=== PATIENT | female | born 1980 | race African-American/Black ===

== ENCOUNTER 2024-05-29 11:26 | Emergency (ER) | payer OTHER, SELFPAY ==
[2024-05-29 11:27] VITALS: BP 137/97; PULSE 98; RESP 18; TEMP 36.3; O2SAT 100; BMI 24.1
--- NOTE | 2024-05-29 11:41 | CT_ITS ---
STUDY: CT SOFT TISSUE NECK WITH CONTRAST REASON FOR EXAM: Female, 43 years old. right anterolateral neck pain, swelling RADIATION DOSAGE (If Supplied By Facility): CTDIvol = ( 11.46 ) mGy, DLP = ( 294.90 ) mGycm TECHNIQUE: The patient was scanned in a multi-detector CT scanner. High resolution transaxial imaging was performed following intravenous administration of IV 75mL Isovue-370. Sagittal and coronal images were reconstructed. Individualized dose optimization techniques were used for this CT. COMPARISON: None. FINDINGS: Normal bilateral parotid glands. Normal bilateral biometrics experimentalist spaces. Normal bilateral parapharyngeal spaces. Normal bilateral carotid spaces. Normal bilateral sublingual and submandibular glands and spaces. Normal visualized nasopharynx. Normal retropharyngeal space. Normal perivertebral space. Normal visualized bilateral faucial tonsils. The visualized tongue, tongue base and oropharynx are normal. The visualized cervical lymph nodes (levels I-) are within normal size limits, and maintain normal morphology. There is no demonstrated solid or cystic mass lesion. There is no abnormal contrast enhancement. Normal epiglottis, bilateral vallecula and hypopharynx. The pre-epiglottic and paraglottic adipose spaces are normal. Normal visualized bilateral piriform sinuses, aryepiglottic folds, vocal cords, and arytenoid-cricoid articulations. Normal subglottic trachea. Multiple nodules decreased attenuation and/or enhancement within the thyroid gland suggestive of a multinodular thyroid gland with a possible 3 cm dominant nodule in the left lobe. Follow-up thyroid ultrasound may be useful. Normal visualized pulmonary apices. Normal visualized paranasal sinuses. Normal visualized cervical spine. CT/Soft Tissue Neck WITH Contrast IMPRESSION: 1. No obvious mucosal mass or lymphadenopathy. 2. Possible multinodular goiter and follow-up thyroid ultrasound may be useful. Electronically Signed: Mohamud Laguna MD at 12:57 EDT ,
--- NOTE | 2024-05-29 11:46 | EX.ED.DYSGE1 ---
HPI History of Present Illness Chief Complaint: Wound Detail of Chief Complaint: Neck pain and swelling Informant: patient Narrative Narrative: Patient presents with right lower neck pain and swelling that is been progressive over the past 24 hours. She denies URI symptoms with congestion or sore throat. She has not had any neck injury. She went to urgent care this morning and they were concerned about possible thyroid infection and sent her to the emergency room. Patient has no known history of thyroid problems. PFSH PFSH Medical History no medical history no medical history Home Medications ?Medication ?Instructions ?Recorded ?Last Taken ?Type hydrocodone-acetaminophen 5-325mg 1 tab PO Q6H PRN PRN Pain 3 days 05/29/24 Unknown Rx 5mg-325mg #10 TABLETS naproxen 500 mg tablet (Naprosyn) 500 mg PO BID PRN pain #20 tabs 05/29/24 Unknown Rx Allergy/AdvReac Type Severity Reaction Status Date / Time No Known Allergies Allergy Verified 05/29/24 11:27 Social History Smoking Status: Unknown if ever smoked ROS ROS ED Constitutional Constitutional ED: Denies chills or fever(s) Eyes Eyes: Denies discharge from eye(s) ENT ENT ED: Reports other Details: Anterior neck pain ; Denies discharge from eye(s), rhinorrhea or sore throat Cardiovascular Cardiovascular: Denies chest pain Respiratory/Chest Respiratory/Chest: Denies cough or dyspnea Gastrointestinal Gastrointestinal: Denies abdominal pain, nausea or vomiting Musculoskeletal Musculoskeletal: Denies back pain or extremity pain Integumentary Denies Abrasions or rash Neurologic Neurologic: Denies headache(s) or weakness Psychiatric Psychiatric: Denies anxiety or depression Allergic/Immunologic Allergic/Immunologic ED: Denies lip swelling or urticaria EXAM Physical Exam Const Vital Signs: 05/29/24 11:27 05/29/24 13:25 Temperature 97.3 F L Temperature Source Temporal Pulse Rate 98 81 Respiratory Rate 18 17 Blood Pressure 137/97 H 136/96 H Blood Pressure Mean 110 109 Pulse Ox 100 99 Oxygen Delivery Method Room Air Room Air Positive well nourished and well developed General Appearance ED: well developed HEENT HEENT Narrative: Tender edematous area to the right anterior lateral lower neck. No overlying skin change. Patient speaks with a strong voice and tolerates secretions well. Eyes EOMs intact bilaterally Chest Wall inspection of chest normal and palpation of chest normal Resp normal respiratory effort and clear to auscultation bilaterally Cardio regular rate and regular rhythm GI non-tender Palpation: soft Extremity normal to inspection Neuro oriented x3 and no sensory deficits noted Motor Exam: strength 5/5 throughout Psych mental status grossly normal Skin no rashes or lesions noted MDM MDM MDM Narrative Medical decision making narrative: IV line established. Labwork obtained to evaluate for leukocytosis, anemia, and electrolyte derangement. CT of the neck with IV contrast will be obtained to evaluate for mass, hematoma. History & Record Review Discussion w/independent historian: Patient Lab Data Attestation: I reviewed the patient's lab results. Labs: Laboratory Results - last 24 hr 05/29/24 11:52 WBC 7.3 RBC 4.23 Hgb 9.3 L Hct 31.4 L MCV 74.2 L MCH 22.0 L MCHC 29.6 L RDW Std Deviation 47.8 H RDW Coeff of [place] 17.8 H Plt Count 346 MPV 10.1 Immature Gran % (Auto) 0.700 Neut % (Auto) 58.9 Lymph % (Auto) 32.6 [place] % (Auto) 6.0 Eos % (Auto) 1.0 Baso % (Auto) 0.8 Absolute Neuts (auto) 4.3 Absolute Lymphs (auto) 2.37 Nucleated RBC % 0 Sodium 138 Potassium 3.6 Chloride 107 Carbon Dioxide 26.0 Anion Gap 5 BUN 6 L Creatinine 0.70 Estim Creat Clear Calc 81.11 Est GFR (MDRD) Af Amer 117 Est GFR (MDRD) Non-Af 97 BUN/Creatinine Ratio 8.6 L Glucose 86 Calcium 9.0 TSH 1.01 Free T4 0.95 Serum , Qual NEGATIVE Radiography Diagnostic Testing: Clinical Impression(s) from Imaging Studies Soft Tissue Neck CT 05/29/24 11:41 IMPRESSION: 1. No obvious mucosal mass or lymphadenopathy. 2. Possible multinodular goiter and follow-up thyroid ultrasound may be useful. Electronically Signed: Mohamud Laguna MD at 12:57 EDT , Thyroid Ultrasound 05/29/24 13:40 IMPRESSION: Multinodular thyroid gland with a dominant nodule in the left lobe for which ultrasound-guided biopsy is recommended. Electronically Signed: Mohamud Laguna MD at 15:33 EDT , Treatment and Re-Evaluation :: CBC and chemistry studies significant only for anemia with a hemoglobin 9.3. I do not have any prior values available for comparison. TSH is normal at 1.01. Free T40.95. Total T3 is still pending. test negative. CT scan of the neck with IV contrast is obtained that reveals no obvious mucosal mass or lymphadenopathy. Possible multinodular goiter is noted with follow-up thyroid ultrasound recommended. Patient was sent for ultrasound of her thyroid. This reveals multinodular thyroid with a dominant nodule in the left lobe for which ultrasound-guided biopsy is recommended. Test results were discussed with the patient. She will be referred to surgery for follow-up. She will also be referred to a primary care physician to establish care. I will write her a short course of naproxen as well as a few [place] for breakthrough pain. Return instructions were provided. Patient comfortable with the plan. Discharge Plan Triage Chief Complaint: Wound ED Provider: Mayela Fenton Dx/Rx/DC Orders Clinical Impression: Acute neck pain, Multinodular thyroid Instructions: Treating Thyroid Problems Prescriptions: New naproxen [Naprosyn] 500 mg tablet 500 mg PO BID PRN (Reason: pain) Qty: 20 0RF hydrocodone-acetaminophen 5-325 mg tablet 1 tab PO Q6H PRN PRN (Reason: Pain) 3 Days Qty: 10 0RF Primary Care Provider: Care Physician,No Primary Referrals: Jairon Avina MD [Med Staff - Active Staff] - 1-2 Weeks Milena Milner MD [Med Staff - Courtesy Staff] - Rian Gaytan DO [Med Staff - Certified Marine Mechanic] - As Needed Print Language: Frisian Disposition Disposition: Home, Self Care
[2024-05-29 12:02] LABS: Absolute Lymphocyte Count 2.37 X10^3/uL (0.83-4.51); Absolute Neutrophil Count 4.3 X10^3/uL (2.0-7.7); Basophil# 0.06 X10^3/uL; Basophil% 0.8 % (0-1); Eosinophil# 0.07 X10^3/uL; Hematocrit 31.4 % (37-47); Hemoglobin 9.3 g/dL (12.0-15.0); Lymphocyte # 2.37 X10^3/ul (0.83-4.51); Lymphocyte % 32.6 % (19-41); Mean Corp Hgb Conc 29.6 g/dL (32-36); Mean Corpuscular Volume 74.2 fL (81-99); Mean Platelet Vol. 10.1 fl (6.2-12.0); Monocyte# 0.44 X10^3/uL; NRBC Flagged by Analyzer 0 % (0-5); Neutrophil # 4.29 X10^3/uL (2.7-7.7); Neutrophil % 58.9 % (47-70); Platelet Count 346 K/mm3 (150-450); RBC Distribution Width CV 17.8 % (11.6-14.6); RBC Distribution Width SD 47.8 fl (35.1-43.9); Red Blood Count 4.23 M/mm3 (4.2-5.4); White Blood Count 7.3 K/mm3 (4.4-11.0)
[2024-05-29 12:17] LABS: Internal QC Validated? YES +Cl - CLEAR BKGD; Pregnancy, Serum, hCG Quali. NEGATIVE Negative
[2024-05-29 12:26] LABS: Anion Gap 5 (5-15); BUN 6 mg/dL (7-18); BUN/Creat Ratio 8.6 RATIO (10-20); Chloride 107 mmol/L (98-107); EST Glomerular Filtration Rate 97 mL/min (>60); Est Glom Filt Rate - Afr Amer 117 mL/min (>60); Estimated Creatinine Clearance 81.11 ml/min; Glucose 86 mg/dL (74-106); Potassium 3.6 mmol/L (3.5-5.1); Sodium Level 138 mmol/L (136-145); T4 Free Direct 0.95 ng/dL (0.76-1.46); Thyroid Stim Hormone (TSH) 1.01 uIU/mL (0.358-3.74)
[2024-05-29] MEDS: Acetaminophen 500 MG Tablet 1000 MG PO (12:53)
[2024-05-29 13:25] VITALS: BP 136/96; PULSE 81; RESP 17; O2SAT 99
--- NOTE | 2024-05-29 13:40 | US_ITS ---
STUDY: THYROID ULTRASOUND REASON FOR EXAM: Female, 43 years old. pain, swelling x 24 hours TECHNIQUE: Ultrasound evaluation of the thyroid was performed with real-time and static tamez-scale imaging. COMPARISON: CT earlier today FINDINGS: RIGHT LOBE: The right lobe of the thyroid gland measures 5.6 x 2.1 x 2.3 cm. There is a homogeneous echotexture. Nodule 1:13 x 13 x 10 mm mixed cystic and solid isoechoic wire than tall ill-defined margined nodule with no echogenic foci (TR 2) in the anterior right lobe consistent with an adenoma. Nodule 2:22 x 18 x 17 mm cystic anechoic wider than tall smoothly margined nodule with comet tail artifacts (TR 1) in the mid right lobe consistent with a colloid cyst. Nodule 3:13 x 9 x 14 mm of a mixed cystic and solid isoechoic water than tall ill-defined margined nodule with no echogenic foci (TR 2) in the mid right lobe consistent with an adenoma. LEFT LOBE: The left lobe of the thyroid gland measures 6.2 x 3.1 x 2.4 cm. There is a homogeneous echotexture. Nodule 4:35 x 25 x 21 mm solid isoechoic water than tall ill-defined margin nodule with no echogenic foci (TR 3) in the mid left lobe for which ultrasound-guided biopsy is recommended. Nodule 5:15 x 15 x 15 mm solid isoechoic water than tall ill-defined margin nodule with no echogenic foci (TR 3) in the inferior left lobe and follow-up ultrasound is recommended in 1 year.. Nodule 6:14 x 14 x 15 mm mixed cystic and solid isoechoic wider than tall ill-defined margin nodule with no echogenic foci (TR 2) in the mid left lobe consistent with an adenoma. ISTHMUS: The isthmus measures 7 mm thick. Nodule 7:14 x 15 x 9 mm mixed cystic and solid isoechoic water than tall ill-defined margin nodule with no echogenic foci (TR/TE) in the right-sided isthmus consistent with an adenoma.. The regional lymph nodes are normal. US/Thyroid IMPRESSION: Multinodular thyroid gland with a dominant nodule in the left lobe for which ultrasound-guided biopsy is recommended. Electronically Signed: Mohamud Laguna MD at 15:33 EDT ,
[2024-05-29 16:03] VITALS: BP 114/69; PULSE 79; RESP 17; TEMP 37; O2SAT 98
[2024-05-30 13:59] LABS: T3 Total - Triiodothyronine 1.21 ng/mL (0.6-1.81)
== END 2024-05-29 16:04 | disposition home or self-care (01) ==
PROVIDERS: Emergency Provider Emergency Medicine; Visit Provider Emergency Medicine
DX: M54.2 Cervicalgia (principal); R22.1 Localized swelling, mass and lump, neck; E04.2 Nontoxic multinodular goiter
CPT/HCPCS: 70491; 76536; 80048; 84439; 84443; 84480; 84703; 85025; 99282; Q9967

== ENCOUNTER → 2024-07-15 | Outpatient (CLI) | payer SELFPAY ==
--- NOTE | 2024-07-15 08:15 | FLU_PTH ---
PATIENT: ABDON VELASQUEZ LETNADIAAACCT #:[id number] LOC: [facility] #:[id number] AGE/SX: 44/F ROOM: RE07/15/[address]: Dr. Carlos Cervantes MD : 1980 BED: DIS: 07/15/2024 SPEC #: [id number] RECD: 07/15/24 10:02 STATUS: PELON KAITLYNN #: [id number] CANDELARIA: 07/15/24 08:[address]: Carlos Cervantes DEPT: CYTOLOGY RECD BY: Rosa Nunez ENTERED: 07/15/24 11:15 SP TYPE: Fluid OTHR DR: No Primary Care Phys Tissues: A - Thyroid gland, NOS B - Thyroid gland, NOS Procedures: Special Stain Group II Surgery Specimen Level IV Cytospin Fluid Cytology Other HEADER OPERATION: Fine needle aspiration of left thyroid nodule PRE-OP DIAGNOSIS: Left thyroid nodule TISSUE SUBMITTED: A- Left mid thyroid nodule fluid, B- Left mid thyroid nodule slides DIAGNOSIS CYTOLOGY A. Fine needle aspiration, left mid thyroid nodule (cytospin and cellblock): Adequate for evaluation. Consistent with benign follicular nodule ([place] Category II). See comment. B. Fine needle aspiration, left mid thyroid nodule (smears): Adequate for evaluation. Consistent with benign follicular nodule ([place] Category II). See comment. / 07/16/2024 COMMENT A, B. The [place] System for thyroid diagnostic categorization was used in the evaluation of this case. CYTOLOGY STUDY Slides are reviewed. CYTOLOGY GROSS A. Received is 30 ml of red- cloudy fluid labeled with the patient's name and and designated per the requisition as Left mid thyroid. Submitted for cytology preparation including cell block. B. Received are 4 smears labeled with the patient's name and designated per the requisition as Left mid thyroid. Submitted for staining. Mr 07/15/2024 TC:5 CPT: 22221,92265
== END | disposition home or self-care (01) ==
PROVIDERS: Referring Provider Surgery; Visit Provider Surgery
DX: E04.1 Nontoxic single thyroid nodule (principal)
CPT/HCPCS: 88108; 88161; 88305; 88313

== ENCOUNTER 2024-09-10 20:35 | Observation (INO) | payer OTHER, SELFPAY ==
[2024-09-10] VITALS (17 sets, daily range): BP systolic 104–144; BP diastolic 65–95; PULSE 66–95; RESP 14–16; TEMP 36.3–37.2; O2SAT 94–100; BMI 23.9
[2024-09-10] MEDS: Lactated Ringers 1,000 ML 15 ML IV (06:26)
--- NOTE | 2024-09-10 06:57 | PCM.PRE.AN2 ---
ASA Classification* ASA Classification ASA Classification: 2 Assessment & Plan Anesthesia* Anesthesia Assessment Anesthesia Assessment: Discussed sedation and/or anesthesia options, risks, benefits, and alternatives with patient/parents/legal guardian/POA. Questions invited. The patient/parents/legal guardian/POA seems to understand and agrees to proceed with anesthesia plan. Reviewed the physical assessment, medical history, allergy history and patient home medications list prior to surgery/procedure/anesthetic and documented any changes. Performed airway and anesthesia risk assessments. Anesthesia Type Anesthesia Type: General (see written pre anesthesia record for full assessment) Anesthesia Focused Assessment* Temperature: 98.1 F Pulse Rate: 87 Blood Pressure: 134/95 Respiratory Rate: 16 Pulse Ox: 100 Airway Assessment Mouth opens: >3 cm Mallampati Score: II Focused Labs Anesthesia Preop lab: CBC WBC 7.3 K/mm3 (4.4-11.0) 05/29/24 11:52 RBC 4.23 M/mm3 (4.2-5.4) 05/29/24 11:52 Hgb 9.3 g/dL (12.0-15.0) L 05/29/24 11:52 Hct 31.4 % (37-47) L 05/29/24 11:52 Plt Count 346 K/mm3 (150-450) 05/29/24 11:52 CHEMISTRY Potassium 3.6 mmol/L (3.5-5.1) 05/29/24 11:52 Sodium 138 mmol/L (136-145) 05/29/24 11:52 BUN 6 mg/dL (7-18) L 05/29/24 11:52 Creatinine 0.70 mg/dL (0.55-1.02) 05/29/24 11:52 Glucose 86 mg/dL (74-106) 05/29/24 11:52 TSH 1.01 uIU/mL (0.358-3.74) 05/29/24 11:52 COAG Pre-Assessment Diagnosis/Proposed Procedure Planned Operative Procedure(s): LEFT THYROID LOBECTOMY WITH INTRAOPERATIVE NERVE MONITERING AND PARATHYOID HORMONE Anesthesia History Anesthesia History - boatswains mate: Anesthesia History - boatswains mate Hx Hospitalization No 08/29/24 11:00 Any Problems With Anesthesia No 08/29/24 11:00 Cholinesterase deficiency No 08/29/24 11:00 You/Your Family Experience No 08/29/24 11:00 fever (hyperthermia) with Relationship Recent Exposure to Contagious No 09/10/24 06:17 Disease Does patient have nerve No 08/29/24 11:00 stimulator Patient instructed to have device shut off --Does patient have Pacemaker No 09/10/24 06:19 or ICD? When Was Last Pacemaker Check QUESTION #4 FULL TEXT: You/Your Family Experience fever (hyperthermia) with Anesthesia Last Oral Intake Last Oral intake: Last Oral Intake NPO since 00:00 09/10/24 06:19 Meds taken in AM with sips of No 09/10/24 06:19 water? Meds patient instructed to take am of surgery PONV PONV - boatswains mate: PONV - boatswains mate Female Yes 08/29/24 11:00 HX of Motion Sickness Yes 08/29/24 11:00 HX of N/V After Surgery No 08/29/24 11:00 Non-Smoker Yes 08/29/24 11:00 Duration of Surgery greater Yes 08/29/24 11:00 than 60 minutes Number of Risk Factors 4 08/29/24 11:00 PONV Score Severe Risk 08/29/24 11:00 Height & Weight Height & Weight: Anesthesia: Height & Weight Height 5 ft 2 in 09/10/24 06:19 Weight: 59.3 kg 09/10/24 06:19 Body Mass Index (BMI) 23.9 09/10/24 06:19 Respiratory Assessment Respiratory Assessment - boatswains mate: Respiratory Tract Infection Hx - boatswains mate Hx Respiratory Tract Infection No 08/29/24 11:00 STOP Sleep Apnea STOP Sleep Apnea - boatswains mate: STOP Sleep Apnea - boatswains mate Hx Hypertension No 08/29/24 11:00 Hx Sleep Apnea No 08/29/24 11:00 CPAP BIPAP Do you snore loudly (louder No 08/29/24 11:00 than talking or can be heard Do you often feel tired/ Yes 08/29/24 11:00 fatigued/ sleepy during daytime? Has anyone observed you stop No 08/29/24 11:00 breathing during sleep? STOP Results Negative 08/29/24 11:00 QUESTION #5 FULL TEXT : Do you snore loudly (louder than talking or can be heard through closed doors)? Tobacco Use History Tobacco Use History - boatswains mate: Tobacco Use History - boatswains mate Tobacco Use Smoking Status Never smoker 08/29/24 11:00 Hx Tobacco Use No 08/29/24 11:00 Years Smoking Packs Smoked per Day Smoking Cessation Date was within the last 15 years Hx Smoking Cessation Date Hx Smoking Cessation Counseling Hematologic Medial History Hematologic Hx - boatswains mate: Hematologic Medical Hx - manager documentation Hx of Blood Transfusion No 08/29/24 11:00 Hx of Transfusion in last 3 No 08/29/24 11:00 Months Date of Last Transfusion (if within last 3 months) Ever experience any problems No 08/29/24 11:00 with transfusion(s)? Specify any problems Hx of Preganancy in last 3 No 08/29/24 11:00 Months Nurse Filling Out Transfusion DSCHRIBER 08/29/24 11:00 & Questions: Date: 08/29/24 08/29/24 11:00 Time: 11:02 08/29/24 11:00 Patient unable to answer at this time (ie. confused, unrespo /Reproduction History /Reproductive History - boatswains mate: /Reproductive Hx- boatswains mate Hx Now No 08/29/24 11:00 Gestational Age (in weeks): EDC: Hx Hx Para Hx Section SAB No 08/29/24 11:00 Active Medications Active Medications: Current Medications Generic Name Dose Route Start Last Admin Trade Name Freq PRN Reason Stop Dose Admin Lactated Ringer's 1,000 mls @ 15 mls/hr 09/10/24 06:15 09/10/24 06:26 IV 09/13/24 00:54 15 mls/hr .Q48H IKM Administration Protocol PFSH Medical History Wears glasses Alcohol use Low iron Migraine headache Seizures Asthma Non-smoker Home Medications ?Medication ?Instructions ?Recorded ?Last Taken ?Type acetaminophen 325 mg capsule 650 mg PO Q4H PRN pain 08/29/24 Unknown History (Tylenol) Allergy/AdvReac Type Severity Reaction Status Date / Time No Known Allergies Allergy Verified 08/29/24 10:58 Surgical History History of H/O wisdom tooth extraction Social History Smoking Status: Never smoker alcohol intake: never substance use type: does not use Review of Systems (Anesthesia) ROS Narrative System reviewed and no additional complaints, except as documented.
--- NOTE | 2024-09-10 07:10 | PCM.HP.BLA ---
History and Physical Date of Admission: 09/10/24 Date of Service: 07/25/24 MR#: [id number] Acct: [id number] Name: ABDON VELASQUEZ Rep #: [id number] : 1980 Provider: Dr. Carlos Cervantes MD Age/Sex: 44/F Location: [facility] Status: Signed Intake Vital Signs 07/15/2408:18 07/25/2409:27 Height 5 ft 2 in 5 ft 2 in Weight: 133 lb 6 oz 133 lb BMI 24.3 24.3 BP 118/70 145/84 H Blood Pressure Location Rt brachial Rt brachial Position Sitting Sitting Respiration 18 18 Pulse 77 88 Pulse Source Monitor Monitor Temp 97.3 F L 97.4 F L Temp Source Temporal Temporal Pulse Oximetry (%) 100 99 Oxygen Delivery Method room air room air Intake Visit Reasons: Discuss Thyroid lobectomy Chief Complaint: thyroid lobectomy Is patient in pain?: No Allergies No Known Allergies Allergy (Verified 07/25/24 09:28) PFSH Surgical History (Updated 07/15/24 @ 08:18 by Davida Griffin LPN) H/O wisdom tooth extraction Social History (Updated 07/15/24 @ 08:18 by Davida Griffin LPN) Smoking Status: Never smoker alcohol intake: never substance use type: does not use HPI HPI HPI: Patient is a 44-year-old female who presents for ER follow-up after she was noted to have thyroid nodules. They are referred for surgical consultation from Dr. Fenton of emergency medicine. This is patient's second consultation visit after initial consultation visit included thyroid biopsy on 07/17/2024. The results of that FNA biopsy were reassuring with a benign result and adequate for evaluation, however, patient states that she is interested in getting rid of the side with the largest nodes. She shares that her main interest is in getting her old voice back. She adds that she is not keen on the idea of potentially requiring cyst aspiration for her remaining thyroid lobe but is also not keen on the idea of needing to supplement her thyroid hormone the rest of her life. She denies any concerns related to her recent breast biopsy. Below is recapitulated from patient's consultation visit for ease of review: This was discovered after patient presented to the emergency room due to presence of some external swelling of her neck as well as some internal pain that she was concerned represented strep throat. However, she shares that she was tested for strep and this was negative. They do not experience difficulty with swallowing. They do not complain of a new cough. They do appreciate new voice changes which they state has been present for the last few months. They even include mention of 2 periods where she lost her voice in both January and March. She shares that she initially assumed this was secondary to allergies as she had experienced some drainage around this time as well. Additionally she notes some recent throat clearing. They do not have a history of snoring/sleep apnea. Additionally, their weight has been stable and they do not have a history of weight gain/loss or an inability to lose despite intentional effort. There is a history of recent fatigue, but patient attributes this to her work. They do not have a history of heat or cold intolerance. Other symptoms include: Some anxiety but [place] of palpitations. Patient also notes that her bowel habits are regular. They do not have a family history of thyroid disorders or endocrinopathies. There is no history of prior radiation exposure. Previous work-up has included thyroid ultrasound. This study was performed on 05/29/2024 and showed a right thyroid lobe measuring 5.6 x 2.1 x 2.3 cm. Within this lobe radiology identified 3 nodules measuring up to 2.2 cm for the largest nodule described (the second nodule) but this was graded a TI-RADS 1 by radiology signifying it was a colloid cyst. The left thyroid lobe measured 6.2 x 3.1 x 2.4 cm. Within this lobe radiology, again, identified 3 nodules with the largest measuring 3.5 x 2.5 x 2.1 cm and was rated a TI-RADS 3 due to a solid composition isoechoic echogenicity. There was a second TI-RADS 3 nodule, however, this was 1.5 cm in greatest dimension. Lastly radiology identified a additional 1.5 cm TI-RADS 3 nodule of the isthmus. Based on ACR criteria patient's 3.5 cm TI-RADS 3 nodule was recommended for biopsy but an FNA has not been performed. Other tests include: TSH: 1.01, free T4: 0.95, total T3: 1.21 (05/29/2024) ROS General General: Yes fatigue; No weight change, appetite, colon cancer, breast cancer or weakness HEENT HEENT: Yes swollen glands; No difficulty swallowing, eye injury, eye surgery or hoarseness Endo Endocrine: No thyroid disease, diabetes mellitus, thyroid cancer, Hair loss, heat intolerance or cold intolerance Skin Skin: Yes changing moles; No rash Musc Musculoskeletal: No back problems, arthritis, rheumatoid arthritis, gout or joint pain Cardio Cardiovascular: No murmur, pacemaker, heart disease, atrial fibrillation, high blood pressure, heart attack, heart stent, palpitations, shortness of breat with exertion or chest pain Psych Psychiatric: Yes anxiety; No depression or hearing voices Resp Respiratory: No shortness of breath, No sleep apnea, No cough, No COPD, Yes asthma, No emphysema and No wheezing Gastro Gastrointestinal: No abdominal pain, No nausea or vomiting, No diarrhea, No constipation, No blood in stool, Yes acid reflux, No hemorrhoids, No ulcers, No gallbladder problem and No black,tarry stools Yasmani Hematologic: No blood thinners, No blood disorders, No bleeding, No anemia and No blood clots Neuro Neurologic: No numbness, No tingling and No weakness Exam Const General: cooperative and comfortable Orientation: alert, awake and oriented x3 Neck Other: Well-healed neck without any visible signs of swelling upon inspection Assessment and Plan Assessment and Plan (1) Multinodular thyroid: Status: Acute Comment: Patient is a 44-year-old female, euthyroid from an endocrine standpoint, who presents for initial surgical consultation related to newly diagnosed thyroid nodularity. She presents in follow-up from an emergency room visit where she had been concerned of neck swelling. Nodularity was first described on CT imaging and further characterized with follow-up ultrasound. Upon eliciting her history she largely denies any compressive symptomology apart from some hoarseness of her voice which she has previously ascribed to allergies. However, given the large size of her dominant left-sided thyroid nodule and the fact that it met ACR criteria based on his TI-RADS rating for biopsy I agreed with radiology's recommendation to pursue FNA biopsy. Thus this recommendation was extended patient and after a overview of the TI-RADS grading system she provided her consent to proceed. This procedure was undertaken during today's visit in uncomplicated fashion. Full details are given in the procedures section of this note. I did describe to patient that sometimes surgical intervention is required for thyroid pathology simply on account of a mass effect even with benign pathology. I further shared that in her case my suspicion was she experienced rather sudden changes in the overall volume of her gland secondary to changes in the size of several cyst that compose both lobes. This was objectively seen in the significantly decreased size of patient's dominant right-sided thyroid cyst which was not seen at the same size on my ultrasound today. Update 07/25/2024: Mrs. Ping Rosa presents again today for follow-up of her thyroid. She initially states that she is inclined to pursue thyroid lobectomy, but then suggests aversion to the idea of requiring additional attention for the cystic changes to her right thyroid lobe. I have been intentional in my communication to her that would be impossible to prognosticate about her future needs regarding development of cyst mass effect and also communicated that the shortness way to alleviate compressive symptoms would be to pursue a total thyroidectomy. Additionally, I communicated to patient the risks around surgery?particularly the procedure?specific risks of hypoparathyroidism and recurrent laryngeal nerve injury. Hand drawings were made to illustrate the relevant anatomy and physiology. I stressed that thyroid lobectomy effectively incurs half the risk of total thyroidectomy and that the former can be done as a outpatient while I recommend overnight observation for the latter. Upon assimilating all this information it is Mrs. Ping Rosa's preference to pursue outpatient thyroid lobectomy with isthmusectomy and intraoperative nerve monitoring. I find this reasonable as I do suspect the cyst development within her right thyroid lobe was related to an acute viral illness thyroiditis that may never recur again. Plan: ? Left thyroid lobectomy with intraoperative nerve monitoring to be performed with intent for outpatient disposition I have examined the patient and the H&P has been reviewed. There are no clinical changes since date of exam. Case procedure and postprocedure expectations have been reviewed. Patient nor father offer any further questions. Proceed with left thyroid lobectomy and intraoperative nerve monitoring as planned. Note: Use of parathyroid hormone monitoring has been scratched from the consent as this was entered erroneously by staff.
--- NOTE | 2024-09-10 07:30 | THYROID_PTH ---
PATIENT: ABDON VELASQUEZ LETNADIAAACCT #:[id number] LOC: MS3 U#:[id number] AGE/SX: 44/F ROOM: IN318 RE09/10/[address]: Dr. Carlos Cervantes MD : 1980 BED: 1 DIS: 09/11/2024 SPEC #: [id number] RECD: 09/10/24 17:51 STATUS: PELON CALDERÓN #: [id number] CANDELARIA: 09/10/24 07:[address]: Carlos Cervantes DEPT: SURGICAL PATHOLOGY RECD BY: Rosa Nunez ENTERED: 09/11/24 08:09 SP TYPE: THYROID OTHR DR: No Primary Care Phys Tissues: Thyroid gland, NOS Procedures: Surgery Specimen Level V HEADER OPERATION: Thyroid lobectomy with IONM PRE-OP DIAGNOSIS: Multinodular thyroid TISSUE SUBMITTED: Left thyroid lobe and isthmus, tag colbert left superior lobe MICROSCOPIC DIAGNOSIS Left thyroid isthmus, lobectomy: Multinodular goiter. Previous biopsy related changes. See comment. 09/12/2024 COMMENT Please make reference to previous specimen [id number] fine needle aspiration, left mid thyroid nodule with diagnosis of consistent with benign follicular nodule. MICROSCOPIC DESCRIPTION Slides are reviewed. GROSS DESCRIPTION Received in fixative is one container labeled with the patient's name and designated Left thyroid lobe and isthmus. The specimen consists of a thyroid lobectomy specimen weighing 25.1gm and measuring 6.5 x 4.0 x 2.5cm. The specimen is oriented by a suture- left superior pole. No obvious isthmic tissue is identified. The specimen is inked as follows: anterior surface- blue, posterior surface- black, isthmic resection margin- yellow. The specimen appears to be partially disrupted. Serial sections reveal multiple nodules with colloid cut surfaces. The largest nodule measures 2.0cm in greatest dimension. No obvious capsule is noted around the nodules. Vibratory Pile Driver sections are submitted in ten cassettes. 09/11/2024 TC:5 [facility]:[id number]
[2024-09-10] MEDS: Bupivacaine 0.25% 30 ML Vial (08:17)
--- NOTE | 2024-09-10 10:52 | OP.PCM_ITS ---
Report of Operation Date of Procedure: 09/10/24 Pre-Operative Diagnosis: 1. Multinodular goiter with compressive symptomology and dominant left thyroid lobe cyst 2. History of subacute thyroiditis Post-Operative Diagnosis: Same Surgery/Procedure Performed:: Left thyroid lobectomy with isthmusectomy using intraoperative nerve monitoring Description of Surgical Findings:: ? Grossly intact left superior parathyroid gland ? Grossly and functionally (by Nims)?intact left recurrent laryngeal nerve Surgeon: Carlos Cervantes restaurant culinary manager: Gui Britton Type of Anesthesia: General/Supplemental Anesthesiologist: Bayron Corea Specimen's removed: Left thyroid lobe and isthmus (stitch colbert left superior pole) Estimated Blood Loss (mL): 40 Description of Procedure: After appropriate identification in the preoperative holding area, the patient was brought to the operating room where she was positioned supine on the operating room table. Induction of general endotracheal anesthetic was begun and a NIMS tube was placed under glidescope view to confirm coaptation with the vocal cords anteriorly. Tube was then secured and the patient was positioned with a shoulder roll so that her head was in extension but supported. The Nims electrodes were placed and connected to the monitor. We had appropriate resistance showing on the monitor and tapping at the level of the cricoid produce a graphical representation of the impulse on the monitor. Patient's neck was then prepped and draped in usual sterile fashion and a formal timeout was conducted from those present. The lowest skin fold to the sternal notch was selected for incision site (this resided approximately 2.5 fingerbreadths cephalad to the notch). An incision was extended for 2.5 cm on either side of midline (this later had to be elongated laterally for an additional 2 cm to the left to account for patient's lobe and improve mobility). Electrocautery was used to deepen this incision through the level of the platysma. Subplatysmal flaps were raised with the use of electrocautery and blunt dissection. The strap muscles were then divided along the medial raphe bringing us down to the level of the thyroid. Capsular attachments to the thyroid were divided with the use of LigaSure or bluntly swept away with a peanut sponge. Retractors were placed but I still had suboptimal visualization of the left superior pole of the thyroid so I chose to divide the sternohyoid and sternothyroid muscles cranially in a transverse fashion using LigaSure device. This resulted in the appropriate exposure and the vessels of the superior pole were sequentially ligated with the use of the LigaSure device. As we moved towards the thyroid gland away from the pole vessels, we were careful to identify the superior parathyroid gland and preserve its vascular pedicle. We then moved inferiorly and divided those polar vessels with LigaSure. Again, exposure was challenging and I set about extending her incision laterally by 2 cm. Initially, this facilitated some improved exposure but we experience some bleeding and immediately pressure was applied with cessation of the bleeding?consistent with a venous source. With personnel in place we reexamined and found that a anterior jugular vein had been inadvertently lacerated with our skin incision and this was quickly ligated with a 3-0 silk ligature. With this hemostasis achieved I used blunt dissection to separate the thyroid capsule from the surrounding strap musculature. A thyroid cyst ruptured in doing so but this is also improved mobility on the gland. Then the inferior pole vessels were serially divided with LigaSure energy and a capsular dissection. With the poles freed the thyroid was mobilized medially into the incision by elevating it bluntly. I also bluntly the remaining strap muscle fibers from the thyroid capsule and using blunt dissection parallel to the presumed course of the recurrent laryngeal nerve, exposed the tracheoesophageal groove. Here I visualized the left recurrent laryngeal nerve and then confirmed a good signal on our Nims monitor. The nerve positively identified, I relieved the attachments of the thyroid gland to the underlying trachea with the use of LigaSure. As we again approached the nerve insertion of the cricothyroid membrane, I elected to leave a minuscule amount of thyroid tissue intact using 4-0 silk ligatures. The recurrent laryngeal nerve signal was checked prior to (and after) the division of any thyroid tissue. In the cephalad portion of the incision, I examined for a pyramidal lobe but did not find any residual thyroid tissue. Once I had assured clearance from the nerve, the remaining thyroid tissue was removed from the anterior surface of the trachea with electrocautery to include the entirety of the thyroid isthmus. The specimen was divided with the LigaSure device for hemostasis and passed off the field for permanent section. After irrigating the surgical cavity demonstrated hemostasis. Prior to closure, we confirmed the presence of the superior parathyroid gland as well as a well-functioning recurrent laryngeal nerve. Satisfied with this result, the strap muscles were closed with a running 3-0 Vicryl stitch leaving a small gap at the inferior aspect of the suture line. The platysmal flaps were closed with interrupted 3-0 Vicryl. Some additional local anesthetic was infiltrated throughout the dermis and the skin was closed in a subcuticular fashion using 4-0 Monocryl. Steri-Strips were applied. Telfa and Tegaderm were used as a dressing. The patient was then awakened from anesthetic without event and was taken to PACU for ongoing recovery. Grafts/Implants Used: None Complications None Procedures Endocrine CF Procedures [id number]: [id number] Partial thyroid excision
--- NOTE | 2024-09-10 10:54 | DCINST_ITS ---
Discharge Instructions Diet Discharge Diet: No restrictions (However recommend a liquid to soft diet initially postoperatively) Activity Discharge Activity: May Not Drive (While it remains difficult to check blind spots quickly) May shower in (days): 2 Ice area for (Minutes): 20 Lifting Restrictions: No lifting greater than 15 pounds for 2 weeks after surgery Dressing / Incision Call your doctor if your incision/area has: Continuous Slow Oozing, Sudden Increased Bleeding, Increased Pain/ Swelling, Increased Redness and Swelling at the incision site Call your doctor if you observe: Numbness or Tingling Remove Dressing in: 2 days (Please leave Steri-Strips intact until they fall off spontaneously or are taken off at your follow-up visit) Cleanse incision/area with: Soap & Water Follow Up Care Please Follow Up With: Carlos Cervantes MD When: 7 days postop Test Results: Test results from this visit will be discussed in further detail at your follow- up appointment, if applicable. Discharge Plan Admission Admit Date/Time: 09/10/24 20:35 Primary Reason for Your Visit: Thyroid lobectomy Attending Provider: Carlos Cervantes Primary Care Provider: Care Physician,Margie Primary Discharge Orders/Prescriptions Prescriptions: No Action acetaminophen [Tylenol] 325 mg capsule 650 mg PO Q4H PRN (Reason: pain) Referrals / Follow Up: Care Physician,Margie Primary [Primary Care Provider] - Disposition Discharge Orders: Discharge Patient (Routine); Ordered 09/10/24 Ordered By: Dr. Carlos Cervantes
--- NOTE | 2024-09-10 11:04 | PCM.POST.ANE ---
Anesthesia: Postop Eval I Current Vital Signs Temperature: 98.8 F Pulse Rate: 87 Blood Pressure: 104/65 Respiratory Rate: 16 Pulse Ox: 95 Oxygen Delivery Method: Room Air Assessment Airway patent: Yes Spontaneous unlabored respirations: Yes Mental status: Asleep nausea: No Vomiting: No Anesthesia Complication: No Fluid Hydration Crystalloid volume administer (ml): 1,000 Total IV fluid infused: 1,000 Progress Note Anesthesia document: Postop Eval 1 completed: Yes
[2024-09-10] MEDS: Acetaminophen 500 MG Tablet 1000 MG PO (13:30)
--- NOTE | 2024-09-10 16:53 | POSTOPAN2_ITS ---
Anesthesia Postop Eval I Sum Postop Eval Completion status Anesthesia document: Postop Eval 1 completed: Yes Anesthesia Postop Eval I Summary Anesthesia Postop Eval I Summary: Anesthesia Postop Eval I: Assessment Summary Airway patent Yes 09/10/24 11:05 CONTINUOUS IMPROVEMENT CONSULTANT.JDEF Spontaneous unlabored Yes 09/10/24 11:05 CONTINUOUS IMPROVEMENT CONSULTANT.JDEF respirations Mental status Asleep 09/10/24 11:05 CONTINUOUS IMPROVEMENT CONSULTANT.JDEF nausea No 09/10/24 11:05 CONTINUOUS IMPROVEMENT CONSULTANT.JDEF Vomiting No 09/10/24 11:05 CONTINUOUS IMPROVEMENT CONSULTANT.JDEF Anesthesia Postop Eval I: Fluid Summary Crystalloid volume administer 1,000 09/10/24 11:05 CONTINUOUS IMPROVEMENT CONSULTANT.JDEF (ml) Colloids volume administered ( ml) Blood Product volume administered (ml) Total IV fluid infused 1,000 09/10/24 11:05 CONTINUOUS IMPROVEMENT CONSULTANT.JDEF Anesthesia Postop Eval I: Summary Notes Anesthesia Complication No 09/10/24 11:05 CONTINUOUS IMPROVEMENT CONSULTANT.JDEF Anesthesia Complication Comment: Post-operative progress note Anesthesia: Postop Eval II Evaluation Mental status: Awake and Calm Pain Level: 1 nausea: No Vomiting: No Complications Anesthesia Complication: No
--- NOTE | 2024-09-10 16:53 | PCM.POSTANE2 ---
Anesthesia Postop Eval I Sum Postop Eval Completion status Anesthesia document: Postop Eval 1 completed: Yes Anesthesia Postop Eval I Summary Anesthesia Postop Eval I Summary: Anesthesia Postop Eval I: Assessment Summary Airway patent Yes 09/10/24 11:05 FRONT DESK.JDEF Spontaneous unlabored Yes 09/10/24 11:05 FRONT DESK.JDEF respirations Mental status Asleep 09/10/24 11:05 FRONT DESK.JDEF nausea No 09/10/24 11:05 FRONT DESK.JDEF Vomiting No 09/10/24 11:05 FRONT DESK.JDEF Anesthesia Postop Eval I: Fluid Summary Crystalloid volume administer 1,000 09/10/24 11:05 FRONT DESK.JDEF (ml) Colloids volume administered ( ml) Blood Product volume administered (ml) Total IV fluid infused 1,000 09/10/24 11:05 FRONT DESK.JDEF Anesthesia Postop Eval I: Summary Notes Anesthesia Complication No 09/10/24 11:05 FRONT DESK.JDEF Anesthesia Complication Comment: Post-operative progress note Anesthesia: Postop Eval II Evaluation Mental status: Awake and Calm Pain Level: 1 nausea: No Vomiting: No Complications Anesthesia Complication: No
[2024-09-10] MEDS: proMETHazine 25 MG Tablet 12.5 MG PO (21:13)
[2024-09-10] MEDS: Acetaminophen 500 MG Tablet PO (21:13)
[2024-09-11 02:25] VITALS: BP 146/74; PULSE 60; RESP 16; TEMP 36.6; O2SAT 100
[2024-09-11] MEDS: Acetaminophen 500 MG Tablet PO ×2 (04:23→11:06)
--- NOTE | 2024-09-11 09:00 | CASEMGMT ---
Social Work Per admitting nurse, pt states she does not have a living will nor health care POA and does not want additional information at this time. LUISITO Stephens
[2024-09-11 09:12] VITALS: BP 121/74; PULSE 72; RESP 16; TEMP 36.7; O2SAT 100
--- NOTE | 2024-09-11 09:33 | PCM.PN.SRG ---
Subjective Subjective Patient evaluated resting comfortably in bed. She denies any further nausea and vomiting. She notes incisional soreness. She tolerated liquids well. Objective Data Objective Data Vital Signs: Vital Signs Temp Pulse Resp BP Pulse Ox O2 Del Method 98.0 F 72 16 121/74 H 100 Room Air 09/11/24 09:12 09/11/24 09:12 09/11/24 09:12 09/11/24 09:12 09/11/24 09:12 09/11/24 09:12 Oxygen Delivery Method Room Air Weight: 130 lb 11.746 oz Body Mass Index (BMI) 23.9 Intake & Output: Intake and Output for Last 24 Hours 09/09/24 09/10/24 09/11/24 23:59 23:59 23:59 Intake Total 218.75 / 218.75 Balance 218.75 / 218.75 Physical Exam Neck Neck Narrative: Anterior cervical neck- incision c/d/i. Op-site intact. No swelling or ecchymosis noted. No oozing noted. Assessment & Plan Assessment/Plan (1) Thyroid nodule: PLAN: I am seeing this patient in conjunction with Dr. Cervantes. He has also independently evaluated this patient. Increase patient diet to regular diet Will check in on patient around noon for probable discharge Patient is recovering well Charges/Coding Visit Charges Inpatient E&M: 88730 Subs Hosp L1 (no charge; post-op)
--- NOTE | 2024-09-11 09:50 | CASEMGMT ---
CHACHA CARDOSO note: CHACHA CARDOSO to room. Introduced self and role. Pt resting in bed. She states she lives w/her parents and 3 children (one is in college). Her dad will be taking her home today. She states she had a PCP, but he retired and she does not currently have one. Pt provided w/local PCP directory and she voices appreciation. She denies having any discharge needs/concerns. 6 clicks, 21. Benoit MENESES RN, CM
[2024-09-11] MEDS: FLU VACC 2024-25(6MOS UP)/PF 45 MCG/0.5 ML SYRINGE IM (10:38)
[2024-09-11] MEDS: proMETHazine 25 MG Tablet 12.5 MG PO (11:06)
--- NOTE | 2024-09-11 12:53 | NURSING ---
Pt was able to eat breakfast and lunch. Did not eat a lot but did not have any nausea. Pt pain is also controlled and feels comfortable being discharged.
== END 2024-09-11 13:11 | disposition home or self-care (01) ==
LOC: MS3 21:07 → SDC 21:08 → MS3 21:08
PROVIDERS: Admitting Provider Surgery; Referring Provider Surgery; Visit Provider Surgery
PROC: (CPT 60220; principal; 2024-09-10 07:15)
DX: E04.2 Nontoxic multinodular goiter (principal); Z23 Encounter for immunization; J45.909 Unspecified asthma, uncomplicated
CPT/HCPCS: 60220; 00320; 88307; 90656; 99221; A4648; J7120; A4216; G0378; J2405

== ENCOUNTER → 2024-10-15 | Outpatient (CLI) | payer OTHER, SELFPAY ==
[2024-10-15 13:30] LABS: Free T3 3.4 pg/mL (2.18-3.98); T4 Total, Thyroxin 9.8 ug/dL (4.8-13.9)
== END | disposition home or self-care (01) ==
LOC: LAB 12:14
PROVIDERS: Referring Provider Surgery; Visit Provider Surgery
DX: E04.1 Nontoxic single thyroid nodule (principal); E04.2 Nontoxic multinodular goiter
CPT/HCPCS: 36415; 84436; 84443; 84481

== ENCOUNTER 2024-11-06 01:12 | Emergency (ER) | payer OTHER, SELFPAY ==
[2024-11-06 01:13] VITALS: BP 144/98; PULSE 76; RESP 18; TEMP 36.9; O2SAT 99; BMI 24.3
[2024-11-06 01:18] VITALS: BP 144/98; PULSE 76; RESP 18; TEMP 36.9; O2SAT 99
--- NOTE | 2024-11-06 01:33 | CT_ITS ---
EXAM: CT NECK WITH INTRAVENOUS CONTRAST CLINICAL INDICATION: abscess TECHNIQUE: Helically acquired images were obtained of the neck with intravenous contrast. This CT exam was performed using one or more of the following dose reduction techniques: automated exposure control, adjustment of the mA and/or kV according to patient size, and/or use of iterative reconstruction technique. CONTRAST: IV 75mL Isovue-370 RADIATION DOSE: Total DLP: 320.53 mGy-cm. COMPARISON: Neck CT of 05/29/2024. FINDINGS: BRAIN AND EXTRA-AXIAL SPACES: Visualized brain parenchyma is unremarkable. The visualized dural venous sinuses enhance normally. NASOPHARYNX: Prominent adenoids. SUPRAHYOID NECK: Mildly prominent palatine tonsils which protrude medially and contacting the uvula. No peritonsillar ring-enhancing fluid collection. Parapharyngeal fat is preserved. INFRAHYOID NECK: Epiglottis is normal in size. No findings of acute epiglottitis. SUBMANDIBULAR/PAROTID GLANDS: The parotid glands and submandibular glands are symmetric. THYROID: Left thyroid lobe has been surgically resected. Multiple hypoattenuating nodules are again noted within the thyroid isthmus and right thyroid lobe ; the largest hypoattenuating nodule within the inferior right thyroid lobe has decreased considerably in size. On today''s scan, the largest thyroid nodule measures 15 mm in diameter. SINUSES: Visualized paranasal sinuses are clear. MASTOID AIR CELLS: The mastoid air cells are clear. BONES/JOINTS: There are mild degenerative narrowing of the C5/6 and C6/7 disc spaces with marginal osteophytes. No subluxation. No acute fracture. SOFT TISSUES: No retropharyngeal abscess. VASCULATURE: The common carotid and internal carotid arteries are unremarkable. Left vertebral artery is slightly dominant. LYMPH NODES: A normal-sized lymph node is seen in each suboccipital region. Hazy stranding noted within the subcutaneous fat of the left suboccipital region, without a definite subcutaneous abscess. Normal size anterior and posterior internal jugular lymph nodes are present. No adenopathy. LUNG APICES: Visualized upper lungs are clear. CT/Soft Tissue Neck WITH Contrast IMPRESSION: 1. Mildly prominent adenoids and palatine tonsils. No peritonsillar abscess identified. 2. Status post surgical resection of the left thyroid lobe. 3. Normal epiglottis. 4. No retropharyngeal abscess. Electronically Signed: Elias Fan MD at 2:46 EST ,
[2024-11-06] MEDS: Ondansetron 4 MG/2 ML Vial IV (01:48)
[2024-11-06] MEDS: Piperacil/Tazobactam 3.375 GM in 0.9% Normal Saline (50mL MB+) 50 ML IV (01:48)
[2024-11-06] MEDS: Morphine 4 MG/ML Syringe IV (01:49)
[2024-11-06] MEDS: 0.9% Normal Saline (1000mL) 1,000 ML 999 ML IV (01:49)
[2024-11-06 02:00] LABS: Absolute Lymphocyte Count 2.26 X10^3/uL (0.83-4.51); Absolute Neutrophil Count 2.8 X10^3/uL (2.0-7.7); Basophil# 0.07 X10^3/uL; Basophil% 1.2 % (0-1); Eosinophil# 0.27 X10^3/uL; Eosinophils% 4.6 % (0-5); Hematocrit 30.3 % (37-47); Hemoglobin 9.1 g/dL (12.0-15.0); Lymphocyte # 2.26 X10^3/ul (0.83-4.51); Lymphocyte % 38.2 % (19-41); Mean Corpuscular Hgb 22.1 pg (27.0-32.0); Mean Corpuscular Volume 73.7 fL (81-99); Mean Platelet Vol. 10.2 fl (6.2-12.0); Monocyte# 0.48 X10^3/uL; Monocyte% 8.1 % (0-10); NRBC Flagged by Analyzer 0 % (0-5); Neutrophil # 2.82 X10^3/uL (2.7-7.7); Neutrophil % 47.7 % (47-70); Platelet Count 389 K/mm3 (150-450); RBC Distribution Width CV 16.8 % (11.6-14.6); RBC Distribution Width SD 44.6 fl (35.1-43.9); Red Blood Count 4.11 M/mm3 (4.2-5.4); White Blood Count 5.9 K/mm3 (4.4-11.0)
[2024-11-06 02:14] LABS: Anion Gap 5 (5-15); BUN 5 mg/dL (7-18); BUN/Creat Ratio 7.1 RATIO (10-20); Calcium,Total 8.9 mg/dL (8.5-10.1); Chloride 108 mmol/L (98-107); EST Glomerular Filtration Rate 96 mL/min (>60); Est Glom Filt Rate - Afr Amer 116 mL/min (>60); Estimated Creatinine Clearance 86.82 ml/min; Glucose 102 mg/dL (74-106); Magnesium 2.1 mg/dL (1.6-2.6); Potassium 3.4 mmol/L (3.5-5.1); Sodium Level 138 mmol/L (136-145)
[2024-11-06 02:21] LABS: Lactic Acid 0.8 mmol/L (0.4-1.9)
[2024-11-06] MEDS: HYDROmorphone 1 MG/ML Syringe IV (03:08)
[2024-11-06] MEDS: Lidocaine 2% /Epi 1:100 (20ml) 20 ML VIAL INFILT (03:09)
[2024-11-06 03:12] VITALS: BP 132/86; PULSE 84; RESP 18; O2SAT 99
--- NOTE | 2024-11-06 03:36 | EDS_ITS ---
HPI History of Present Illness Chief Complaint: Wound Check Informant: patient Narrative Narrative: Patient is a 44-year-old female with past medical history of multinodular thyroid. She states that 3 to 4 days ago she noticed a lump to the back of her neck. She states she went to an urgent care where they tried to drain it with a needle and then put her on an antibiotic. She states has been taking the medication as directed but has been having increasing pain and now states is difficult for her to move her neck and she also feels pain and paresthesia into the left arm. She denies any fevers or chills at home and she denies any history immunosuppression but with worsening symptoms comes in for evaluation. PFSH [facility] Medical History Wears glasses Alcohol use Low iron Migraine headache Seizures Asthma Non-smoker Home Medications ?Medication ?Instructions ?Recorded ?Last Taken ?Type clindamycin HCl 300 mg capsule 300 mg PO 4X/DAY 10 days #40 11/06/24 Unknown Rx (Cleocin HCl) CAPSULES methocarbamol 500 mg tablet 1,000 mg (2 x 500 mg) PO 4X/DAY 11/06/24 Unknown Rx PRN Muscle pain/spasm #56 tabs oxycodone-acetaminophen 5 mg-325 1 tab PO Q6H PRN pain 3 days #12 11/06/24 Unknown Rx mg tablet (Percocet) tabs sulfamethoxazole 800 2 tab PO BID 11/06/24 Unknown History mg-trimethoprim 160 mg tablet Allergy/AdvReac Type Severity Reaction Status Date / Time No Known Allergies Allergy Verified 11/06/24 01:18 Surgical History S/P partial thyroidectomy History of H/O wisdom tooth extraction Social History Smoking Status: Never smoker alcohol intake: never substance use type: does not use ROS ROS ED Constitutional Constitutional ED: Denies chills or fever(s) Eyes Eyes: Denies blurry vision or change in vision ENT ENT ED: Denies sore throat Cardiovascular Cardiovascular: Denies chest pain Respiratory/Chest Respiratory/Chest: Denies cough or dyspnea Gastrointestinal Gastrointestinal: Denies abdominal pain, diarrhea, nausea or vomiting Genitourinary Genitourinary ED: Denies dysuria Musculoskeletal Musculoskeletal: Reports neck pain Integumentary Reports abscess Neurologic Neurologic: Reports headache(s) and paresthesias Hematologic/Lymphatic Hematologic/Lymphatic: Denies easy bleeding or easy bruising EXAM Physical Exam Const Vital Signs: 11/06/24 01:13 11/06/24 01:18 11/06/24 03:12 Temperature 98.4 F 98.4 F Temperature Source Oral Oral Pulse Rate 76 76 84 Respiratory Rate 18 18 18 Blood Pressure 144/98 H 144/98 H 132/86 H Blood Pressure Mean 113 113 101 Pulse Ox 99 99 99 Oxygen Delivery Method Room Air Room Air Room Air 11/06/24 03:48 Temperature 98.4 F Temperature Source Pulse Rate 84 Respiratory Rate 18 Blood Pressure 132/86 H Blood Pressure Mean 101 Pulse Ox 99 Oxygen Delivery Method Positive well nourished and well developed General Appearance ED: well developed HEENT HEENT Narrative: Normocephalic atraumatic In the midline of the upper cervical region at the junction between the occiput and the neck there is a 2 x 2 cm of induration and erythema concerning for abscess formation. No active drainage. No lymphangitic streaking No meningeal signs Eyes PERRL and EOMs intact bilaterally Neck supple Neck Narrative: Area of abscess formation as documented above There is also bilateral paracervical tension and spasm greatest on the left Resp normal respiratory effort and clear to auscultation bilaterally Cardio regular rate and regular rhythm Extremity normal to inspection Extremity Narrative: Left upper extremity is neurovascularly intact; AIN/PIN are intact and normal No obvious bony deformity or joint effusion. Compartments are soft and compressible going against compartment syndrome Neuro oriented x3, CN's II-XII intact bilaterally and no sensory deficits noted Sensorium / Orientation: alert Motor Exam: strength 5/5 throughout Psych mental status grossly normal Skin Skin Narrative: Abscess to the cervical spine/neck region as documented above MDM MDM MDM Narrative Medical decision making narrative: Patient arrived to the ER hypertensive but otherwise with stable vitals. She reported needle aspiration and 3 to 4 days of antibiotics without symptom improvement. With concern for developing systemic infection such as a retropharyngeal abscess versus osteomyelitis versus systemic infection such as sepsis or potential electrolyte abnormality as she reported paresthesias basic blood work and a CT scan of the neck were obtained. Labs revealed no leukocytosis or left shift. She did not have lactic acidosis and these findings go against systemic infection. Electrolytes were not clinically significant going against a electrolyte abnormality as a cause of her paresthesias. CT scan of the soft tissue of the neck did not reveal any obvious retropharyngeal or muscular abscess or signs of osteomyelitis. Therefore as her workup indicates this is purely a soft tissue infection she underwent incision and drainage as documented below. As she has had no improvement on Bactrim there is concern for resistance and therefore the antibiotic will be changed. However as she does not have signs of systemic infection or neurovascular compromise there is no need for admission and patient is otherwise safe for discharge with symptomatic care Patient had the area cleaned with chlorhexidine. It was anesthetized with 4 mL of 2% lidocaine with epinephrine in local fashion. A #11 blade was used to make a 1.5 cm incision over top the area of induration. A moderate amount of purulent material was expressed. Loculations were dissected with a needle dejesus. The wound was copiously irrigated with normal saline. Patient tolerated the procedure well without complication History & Record Review Discussion w/independent historian: Patient and Family Lab Data Attestation: I reviewed the patient's lab results. Labs: Laboratory Results - last 24 hr 11/06/24 01:50 WBC 5.9 RBC 4.11 L Hgb 9.1 L Hct 30.3 L MCV 73.7 L MCH 22.1 L MCHC 30.0 L RDW Std Deviation 44.6 H RDW Coeff of [place] 16.8 H Plt Count 389 MPV 10.2 Immature Gran % (Auto) 0.200 Neut % (Auto) 47.7 Lymph % (Auto) 38.2 [place] % (Auto) 8.1 Eos % (Auto) 4.6 Baso % (Auto) 1.2 H Absolute Neuts (auto) 2.8 Absolute Lymphs (auto) 2.26 Nucleated RBC % 0 Sodium 138 Potassium 3.4 L Chloride 108 H Carbon Dioxide 25.0 Anion Gap 5 BUN 5 L Creatinine 0.70 Estim Creat Clear Calc 86.82 Est GFR (MDRD) Af Amer 116 Est GFR (MDRD) Non-Af 96 BUN/Creatinine Ratio 7.1 L Glucose 102 Lactic Acid 0.8 Calcium 8.9 Magnesium 2.1 Radiography Diagnostic Testing: Clinical Impression(s) from Imaging Studies Soft Tissue Neck CT 11/06/24 01:33 IMPRESSION: 1. Mildly prominent adenoids and palatine tonsils. No peritonsillar abscess identified. 2. Status post surgical resection of the left thyroid lobe. 3. Normal epiglottis. 4. No retropharyngeal abscess. Electronically Signed: Elias Fan MD at 2:46 EST , Discharge Plan Triage Chief Complaint: Wound Check ED Provider: Abdoul Baldwin Dx/Rx/DC Orders Clinical Impression: Abscess, Multinodular thyroid Instructions: ED Abscess Incision And Drainage Prescriptions: New clindamycin HCl [Cleocin HCl] 300 mg capsule 300 mg PO 4X/DAY 10 Days Qty: 40 0RF oxycodone-acetaminophen [Percocet] 5-325 mg tablet 1 tab PO Q6H PRN (Reason: pain) 3 Days Qty: 12 0RF methocarbamol 500 mg tablet 1,000 mg PO 4X/DAY PRN (Reason: Muscle pain/spasm) Qty: 56 0RF No Action sulfamethoxazole-trimethoprim 800-160 mg tablet 2 tab PO BID Stand Alone Forms: ED Work / School Excuse Primary Care Provider: Care Physician,No Primary Referrals: Tyrell Calderon MD [Med Staff - Active Staff] - Care Physician,No Primary [Primary Care Provider] - Activity Restrictions/Additional Instructions: Please stop the Bactrim/previous antibiotic you were given from the urgent care and begin taking the clindamycin. It should take 48 to 72 hours for improvement of your symptoms. If you have any further concerns or worsening of symptoms please return to the ER for repeat evaluation Print Language: Welsh Disposition Disposition: Home, Self Care Discharge Date/Time: 11/06/24 04:02
[2024-11-06 03:48] VITALS: BP 132/86; PULSE 84; RESP 18; TEMP 36.9; O2SAT 99
[2024-11-06] MEDS: oxyCODONE 5 MG Tablet 10 MG PO (03:52)
== END 2024-11-06 04:02 | disposition home or self-care (01) ==
PROVIDERS: Emergency Provider Emergency Medicine; Visit Provider Emergency Medicine
DX: L02.91 Cutaneous abscess, unspecified (principal); M79.602 Pain in left arm; E04.2 Nontoxic multinodular goiter
CPT/HCPCS: 10160; 70491; 80048; 83605; 83735; 85025; 96365; 96375; 99283; Q9967; A4216; J2405